=== PATIENT | female | born 1970 | race Caucasian/White ===

== ENCOUNTER 2017-12-20 14:51 | Emergency (ER) | payer MEDICAID ==
[~2017-12-20] VITALS: Ht 160 cm; Wt 72.2 kg
[2017-12-20 16:31] VITALS: BP 140/101
== END 2017-12-20 16:32 | disposition home or self-care (01) ==
LOC: ED 14:51
DX: M75.80 Other shoulder lesions, unspecified shoulder (principal)
CPT/HCPCS: J1885

== ENCOUNTER 2018-03-03 14:25 | Emergency (ER) | payer SELFPAY ==
[~2018-03-03] VITALS: Ht 160 cm; Wt 116.6 kg
[2018-03-03 14:28] VITALS: Ht 160 cm; Wt 116.6 kg
[2018-03-03 15:41] LABS: CALCIUM 8.4 mg/dL (8.5-10.1); CARBON DIOXIDE 25.1 mmol/L (21-32); CHLORIDE SERUM 105 mmol/L (98-107); CREATININE SERUM 0.9 mg/dL (0.6-1.0); GFR1 > 60 mL/min; GLUCOSE SERUM 98 mg/dL (74-106); POTASSIUM SERUM 3.6 mmol/L (3.5-5.1); SODIUM SERUM 139 mmol/L (136-145)
[2018-03-03 15:45] LABS: ALKALINE PHOSPHATASE 96 U/L (46-116); ALT/SGPT 8 U/L (14-59); AST/SGOT 14 U/L (15-37); BILIRUBIN TOTAL 0.35 mg/dL (0.20-1.00)
[2018-03-03 15:51] LABS: BASOPHIL % 0.6 % (0-2); PLATELET COUNT 233 x10^3mcL (130-400)
[2018-03-03 15:52] LABS: RED CELL DISTRIBUTION WIDTH 17.3 % (11.5-14.5)
[2018-03-03 16:48] VITALS: BP 152/89
== END 2018-03-03 16:48 | disposition home or self-care (01) ==
LOC: ED 14:25
PROVIDERS: Emergency Medicine
DX: G62.9 Polyneuropathy, unspecified (principal); E03.9 Hypothyroidism, unspecified
CPT/HCPCS: 36415